=== PATIENT | female | born 1995 | race Caucasian/White ===

== ENCOUNTER 2019-05-30 19:45 | Emergency (ER) | payer MEDICAID ==
[2019-05-30] MEDS ORDERED: Sodium Chloride 0.9% 10 ML Syringe FLUSH PRN (20:41)
[2019-05-30] MEDS ORDERED: Ondansetron 4 MG/2 ML SDV IVPUSH ONE (20:47)
[2019-05-30] MEDS ORDERED: Famotidine 20 MG/2 ML SDV IVPUSH ONE (20:47)
[2019-05-30] MEDS ORDERED: Pantoprazole 40 MG Vial IVPUSH ONE (20:59)
--- NOTE | 2019-05-30 21:30 | CR ---
Chest: Portable view chest was obtained. Comparison: No previous chest x-ray. Cardiac silhouette and mediastinum are within normal limits for portable technique. Nodule is noted within the right midlung which appears fairly dense and most likely represents granuloma. No acute parenchymal change is seen. Bony structures are grossly intact. Minimal scoliosis is noted within the spine. Impression: 1. Findings as noted above. 2. Nothing acute is appreciated. Diagnostic code #2 Study was dictated in [place] Standard Time
--- NOTE | 2019-05-30 22:10 | EDM.PDOC ---
ED HPI GENERAL MEDICAL PROBLEM - General Chief Complaint: Abdominal Pain Stated Complaint: ABDOMINAL PAIN Time Seen by Provider: 05/30/19 20:13 Source of Information: Reports: Patient, RN Notes Reviewed - History of Present Illness INITIAL COMMENTS - FREE TEXT/NARRATIVE: 23 year old female with heartburn type discomfort worsening over the past 2 to 3 wks. Than today she had onset of more severe crampy and achy discomfort upper mid abd associated with mild pleuritic discomfort as well. No vomiting or diarrhea. No radiation of pain to her back. No known hx of GB problems. Abd pain is mainly upper abd and upper mid abd. Abdomen Pain Score (Numeric/FACES): 10 - Related Data Allergies Allergy/AdvReac Type Severity Reaction Status Date / Time No Known Allergies Allergy Verified 05/30/19 20:16 Home Meds: Home Meds Omeprazole 40 mg PO DAILY #30 capsule. 05/30/19 [Rx] Past Medical History - Past Health History Medical/Surgical History: Denies Medical/Surgical History Social & Family History - Tobacco Use Smoking Status *Q: Never Smoker - Caffeine Use Caffeine Use: Reports: Coffee, Soda, Tea - Recreational Drug Use Recreational Drug Use: No ED ROS GENERAL - Review of Systems Review Of Systems: See Below Constitutional: Denies: Fever, Chills, Diaphoresis HEENT: Reports: No Symptoms. Denies: Vision Change Respiratory: Reports: Pleuritic Chest Pain GI/Abdominal: Reports: Abdominal Pain, Nausea. Denies: Constipation, Diarrhea, Hematochezia, Melena, Vomiting Musculoskeletal: Reports: No Symptoms. Denies: Back Pain Skin: Reports: No Symptoms Neurological: Reports: No Symptoms ED EXAM, GI/ABD - Physical Exam Exam: See Below General Appearance: Alert, No Apparent Distress Throat/Mouth: Normal Inspection, Normal Oropharynx Head: Atraumatic Neck: Supple Respiratory/Chest: No Respiratory Distress, Lungs Clear, Normal Breath Sounds Cardiovascular: Regular Rate, Rhythm GI/Abdominal Exam: Soft, Tender (mild tenderness RUQ, upper mid abd, mid abd, RLQ and LLQ nontender) Extremities: Normal Inspection Neurological: Alert, Oriented, No Motor/Sensory Deficits Skin Exam: Warm, Dry, Normal Color Course - Vital Signs Last Recorded V/S: Last Vital Signs Temp 98.3 F 05/30/19 20:12 Pulse 57 L 02/18/20 20:12 Resp 20 05/30/19 20:12 BP 138/97 H 05/30/19 20:12 Pulse Ox 100 05/30/19 20:12 - Orders/Labs/Meds Orders: Active Orders 24 hr Category Date Time Status Peripheral IV Care [RC] . DIRECTED Care 05/30/19 20:44 Active Peripheral IV Insertion Adult [OM.PC] Stat Oth 05/30/19 20:44 Ordered Labs: Laboratory Tests 05/30/19 05/30/19 Range/Units 21:05 21:05 WBC 5.35 (3.98-10.04) K/mm3 RBC 4.19 (3.98-5.22) M/mm3 Hgb 12.8 (11.2-15.7) gm/dl Hct 38.9 (34.1-44.9) % MCV 92.8 (79.4-94.8) fl MCH 30.5 (25.6-32.2) pg MCHC 32.9 (32.2-35.5) g/dl RDW Std Deviation 43.8 (36.4-46.3) fL Plt Count 190 (182-369) K/mm3 MPV 10.0 (9.4-12.3) fl Neut % (Auto) 45.1 (34.0-71.1) % Lymph % (Auto) 46.7 (19.3-51.7) % [place] % (Auto) 5.6 (4.7-12.5) % Eos % (Auto) 2.2 (0.7-5.8) Baso % (Auto) 0.4 (0.1-1.2) % Neut # (Auto) 2.41 (1.56-6.13) K/mm3 Lymph # (Auto) 2.50 (1.18-3.74) K/mm3 [place] # (Auto) 0.30 (0.24-0.36) K/mm3 Eos # (Auto) 0.12 (0.04-0.36) K/mm3 Baso # (Auto) 0.02 (0.01-0.08) K/mm3 Sodium 144 (136-145) mEq/L Potassium 3.4 L (3.5-5.1) mEq/L Chloride 107 (98-107) mEq/L Carbon Dioxide 26 (21-32) mEq/L Anion Gap 14.4 (5-15) BUN 8 (7-18) mg/dL Creatinine 0.8 (0.55-1.02) mg/dL Est Cr Clr Drug Dosing 108.70 mL/min Estimated GFR (MDRD) > 60 (>60) mL/min BUN/Creatinine Ratio 10.0 L (14-18) Glucose 95 (74-106) mg/dL Calcium 9.4 (8.5-10.1) mg/dL Total Bilirubin 0.3 (0.2-1.0) mg/dL AST 11 L (15-37) U/L ALT 22 (14-59) U/L Alkaline Phosphatase 78 (46-116) U/L Total Protein 7.6 (6.4-8.2) g/dl Albumin 4.2 (3.4-5.0) g/dl Globulin 3.4 gm/dL Albumin/Globulin Ratio 1.2 (1-2) Lipase 125 (73-393) U/L Meds: Medications Discontinued Medications Generic Name Dose Route Start Last Admin Trade Name Freq PRN Reason Stop Dose Admin Al Hydroxide/Mg Hydroxide 30 0 ml 05/30/19 22:16 05/30/19 22:24 ml/ Lidocaine HCl 15 ml PO 05/30/19 22:17 45 ml ONETIME ONE Administration Famotidine 20 mg 05/30/19 20:47 05/30/19 21:12 Pepcid IVPUSH 05/30/19 20:48 20 mg ONETIME ONE Administration Ondansetron HCl 4 mg 05/30/19 20:47 05/30/19 21:10 Zofran IVPUSH 05/30/19 20:48 4 mg ONETIME ONE Administration Pantoprazole Sodium 40 mg 05/30/19 20:59 05/30/19 21:14 Protonix Iv IVPUSH 05/30/19 21:00 40 mg ONETIME ONE Administration Sodium Chloride 10 ml 05/30/19 20:41 05/30/19 21:14 Saline Flush FLUSH 10 ml ASDIRECTED PRN Administration Keep Vein Open - Re-Assessments/Exams Free Text/Narrative Re-Assessment/Exam: 05/30/19 23:30 Patient felt better after pepsid, protonix IV. Labs normal, have also given a GI coctail, Discharge instr. as documented. Departure - Departure Time of Disposition: 22:17 Disposition: Home, Self-Care 01 Condition: Fair Clinical Impression: Abdominal pain, Gastritis - Discharge Information Prescriptions: Omeprazole 40 mg PO DAILY #30 capsule. Instructions: Gastritis, Adult, [id number], Abdominal Pain, Adult, Easy-to- Read Referrals: PCP,None [Primary Care Provider] - Forms: ED Department Discharge Additional Instructions: Clear liquids and bland diet as tolerated. Omeprazole 40 mg daily, prescription has been sent to [facility] up by [place]. You also may take liquid antacid such as maalox or mylanta 2 to 3 times daily if needed for further heartburn discomfort. Follow up with a medical provider at our [facility],[phone] for appt., or [facility] in about 10 to 14 days. Return to ED as needed. Sepsis Event Note - Evaluation Sepsis Screening Result: No Definite Risk - Focused Exam Vital Signs: Vital Signs Temp Pulse Resp BP Pulse Ox 05/30/19 20:12 98.3 F 57 L 20 138/97 H 100 Date Exam was Performed: 05/31/19 Time Exam was Performed: 01:07 - My Orders Last 24 Hours: My Active Orders 05/30/19 20:44 Peripheral IV Care [RC] . DIRECTED Peripheral IV Insertion Adult [OM.PC] Stat - Assessment/Plan Last 24 Hours: My Active Orders 05/30/19 20:44 Peripheral IV Care [RC] . DIRECTED Peripheral IV Insertion Adult [OM.PC] Stat
[2019-05-30] MEDS ORDERED: Alum Hydrox/Mag Hydrox/Simeth 30 ML, Lidocaine 2% 15 ML PO ONE ×2 (22:16)
== END 2019-05-30 22:53 | disposition home or self-care (01) ==
LOC: JD.ED 19:45
DX: K29.70 Gastritis, unspecified, without bleeding (principal)
CPT/HCPCS: 36415; 71045; 80053; 83690; 85025; 96374; 96375; 99284; A9270; C9113; J2405; J3490; 99283